=== PATIENT | male | born 1970 | race Caucasian/White ===

== ENCOUNTER 2019-10-24 16:55 | Emergency (ER) | payer BC, OTHER ==
--- NOTE | 2019-10-24 18:35 | ER ---
Nurse's Notes [facility] Name: Joaquin Tuttle Age: 49 yrs Sex: Male : 1970 Arrival Date: 10/24/2019 Time: 16:58 Bed 20 Private MD: Diagnosis: Cellulitis of right lower limb Presentation: 10/23 17:33 Chief complaint: Patient states: right heel pain that began Friday, denies known aa5 injury. Coronavirus screen: Proceed with normal triage. Patient denies a cough. Patient denies shortness of breath or difficulty breathing. Patient denies measured and/or subjective temperature greater than 100.4F prior to today's visit. Patient denies travel on a cruise ship or to a country the [facility] currently lists as an affected area. Patient denies contact with known and/or suspected case of COVID-19. Ebola Screen: Patient negative for fever greater than or equal to 101.5 degrees Fahrenheit, and additional compatible Ebola Virus Disease symptoms. Initial Sepsis Screen: Does the patient meet any 2 criteria? No. Patient's initial sepsis screen is negative. Does the patient have a suspected source of infection? No. Patient's initial sepsis screen is negative. Risk Assessment: Do you want to hurt yourself or someone else? Patient reports no desire to harm self or others. Onset of symptoms was October 2019. 17:33 Method Of Arrival: Ambulatory aa5 17:33 Acuity: TAYLOR 4 aa5 Historical: - Allergies: 17:37 No Known Allergies; aa5 - Home Meds: 17:37 Metformin Oral [Active]; aa5 - PMHx: 17:37 Diabetes - NIDDM; aa5 - PSHx: 17:37 herniated disc sx; Rhinoplasty; L knee; aa5 - Immunization history:: Adult Immunizations unknown. - Social history:: Smoking status: Patient denies any tobacco usage or history of. Screenin:40 Abuse screen: Denies threats or abuse. Nutritional screening: No deficits noted. aa5 Tuberculosis screening: No symptoms or risk factors identified. Fall Risk None identified. Assessment: 17:40 General: Appears comfortable, Behavior is calm, cooperative. Pain: Complains of pain in aa5 right Achilles Pain does not radiate. Pain currently is 2 out of 10 on a pain scale. Quality of pain is described as sharp, Aggravated by increased activity, weight bearing. Neuro: Level of Consciousness is awake, alert, obeys commands, Oriented to person, place, time, situation. Cardiovascular: Heart tones S1 S2 present Rhythm is regular. Respiratory: Airway is patent Respiratory effort is even, unlabored, Respiratory pattern is regular, symmetrical. GI: No signs and/or symptoms were reported involving the gastrointestinal system. : No signs and/or symptoms were reported regarding the genitourinary system. EENT: No signs and/or symptoms were reported regarding the EENT system. Derm: Skin is pink, warm \T\ dry. Musculoskeletal: Range of motion: limited in right ankle. Vital Signs: 17:33 BP 160 / 95; Pulse 73; Resp 18 S; Temp 98.6(TE); Pulse Ox 96% on R/A; Weight 136.08 kg aa5 (R); Height 5 ft. 7 in. (170.18 cm) (R); Pain 2/10; 18:58 BP 148 / 88; Pulse 70; Resp 14; Temp 98.4(O); Pulse Ox 96% on R/A; Pain 0/10; ls4 17:33 Body Mass Index 46.99 (136.08 kg, 170.18 cm) aa5 ED Course: 16:58 Patient arrived in ED. ag5 17:24 [facility] Bor[facility]C [facility]. kb 17:24 Carlos Alberto Pena MD is Attending Physician. kb 17:33 Arm band placed on. aa5 17:33 Patient has correct armband on for positive identification. aa5 17:36 Triage completed. aa5 17:37 Shelby Cruz, RN is Primary Nurse. aa5 18:36 US Extremity Venous Unilateral Ltd In Process Unspecified. EDMS 18:36 Ultrasound completed. Patient tolerated well. Notified ED Physician mary. sg3 Administered Medications: 18:49 Drug: Clindamycin 300 mg Route: PO; ls4 18:59 Follow up: Response: No adverse reaction; Marked relief of symptoms ls4 Outcome: 18:35 Discharge ordered by . kb 18:59 Patient left the ED. ls4 Signatures: Dispatcher [employer] EDDC Mary Borrero FNP-C FNP-Shelby Bonner, RN RN aa5 Katherine Crawford sg3 Moraima Rodriguez RN RN ls4 Jarad Shook ag5
--- NOTE | 2019-10-24 18:35 | EDPHYS ---
Physician Documentation [facility] Name: Joaquin Tuttle Age: 49 yrs Sex: Male : 1970 Arrival Date: 10/24/2019 Time: 16:58 Bed 20 Private MD: ED Physician Carlos Alberto Pena HPI: 10/23 18:33 This 49 yrs old Male presents to ER via Ambulatory with complaints of Foot kb Pain. 18:33 The patient has not experienced similar symptoms in the past. The patient has not kb recently seen a physician. 18:33 the patient presents with a swollen area of the right Achilles. Description: kb erythematous, swollen, warm. Onset: The symptoms/episode began/occurred 3 day(s) ago. Possible cause(s): unknown. Associated signs and symptoms: Pertinent positives: erythema, swelling, Pertinent negatives: discharge, drainage, foreign body sensation, fever, headache, nausea, shortness of breath, vomiting. Modifying factors: the symptoms are alleviated by nothing, the symptoms are aggravated by flexing and extending foot. Severity of symptoms: At their worst the symptoms were moderate, in the emergency department the symptoms are unchanged. Pt states he developed pain and swelling to achilles area on Friday. Denies injury or trauma. States it doesn't feel like a musculoskeletal problem. Historical: - Allergies: 17:37 No Known Allergies; aa5 - Home Meds: 17:37 Metformin Oral [Active]; aa5 - PMHx: 17:37 Diabetes - NIDDM; aa5 - PSHx: 17:37 herniated disc sx; Rhinoplasty; L knee; aa5 - Immunization history:: Adult Immunizations unknown. - Social history:: Smoking status: Patient denies any tobacco usage or history of. ROS: 18:32 Constitutional: Negative for fever, chills, and weight loss, Cardiovascular: Negative kb for chest pain, palpitations, and edema, Respiratory: Negative for shortness of breath, cough, wheezing, and pleuritic chest pain, Abdomen/GI: Negative for abdominal pain, nausea, vomiting, diarrhea, and constipation, Back: Negative for injury and pain, Neuro: Negative for headache, weakness, numbness, tingling, and seizure. 18:32 MS/extremity: Positive for erythema, pain, swelling, of the right Achilles. Exam: 18:32 Constitutional: This is a well developed, well nourished patient who is awake, alert, kb and in no acute distress. Head/Face: Normocephalic, atraumatic. Chest/axilla: Normal chest wall appearance and motion. Nontender with no deformity. No lesions are appreciated. Cardiovascular: Regular rate and rhythm with a normal S1 and S2. No gallops, murmurs, or rubs. Normal PMI, no JVD. No pulse deficits. Respiratory: Lungs have equal breath sounds bilaterally, clear to auscultation and percussion. No rales, rhonchi or wheezes noted. No increased work of breathing, no retractions or nasal flaring. Abdomen/GI: Soft, non-tender, with normal bowel sounds. No distension or tympany. No guarding or rebound. No evidence of tenderness throughout. MS/ Extremity: Pulses equal, no cyanosis. Neurovascular intact. Full, normal range of motion. Neuro: Awake and alert, GCS 15, oriented to person, place, time, and situation. Cranial nerves II-XII grossly intact. Motor strength 5/5 in all extremities. Sensory grossly intact. Cerebellar exam normal. Normal gait. 18:32 Skin: cellulitis, that is mild, on the right Achilles. Vital Signs: 17:33 BP 160 / 95; Pulse 73; Resp 18 S; Temp 98.6(TE); Pulse Ox 96% on R/A; Weight 136.08 kg aa5 (R); Height 5 ft. 7 in. (170.18 cm) (R); Pain 2/10; 18:58 BP 148 / 88; Pulse 70; Resp 14; Temp 98.4(O); Pulse Ox 96% on R/A; Pain 0/10; ls4 17:33 Body Mass Index 46.99 (136.08 kg, 170.18 cm) aa5 MDM: 17:37 Patient medically screened. kb 18:22 Data reviewed: vital signs, nurses notes. Data interpreted: Pulse oximetry: on room air kb is 96 %. Interpretation: normal. 18:32 Counseling: I had a detailed discussion with the patient and/or guardian regarding: the kb historical points, exam findings, and any diagnostic results supporting the discharge/admit diagnosis, radiology results, the need for outpatient follow up, a family practitioner, to return to the emergency department if symptoms worsen or persist or if there are any questions or concerns that arise at home. 10/23 17:42 Order name: US Extremity Venous Unilateral Ltd; Complete Time: 18:52 kb Administered Medications: 18:49 Drug: Clindamycin 300 mg Route: PO; ls4 18:59 Follow up: Response: No adverse reaction; Marked relief of symptoms ls4 Disposition: 19:01 Co-signature as Attending Physician, Carlos Alberto Pena MD. rn Disposition: 10/24/19 18:35 Discharged to Home. Impression: Cellulitis of right lower limb. - Condition is Stable. - Discharge Instructions: Cellulitis, Adult, [id number]. - Prescriptions for Clindamycin HCl 300 mg Oral Capsule - take 1 capsule by ORAL route every 6 hours for 7 days; 28 capsule. - Medication Reconciliation Form, Thank You Letter, Antibiotic Education, Prescription Opioid Use form. - Follow up: Emergency Department; When: As needed; Reason: Worsening of condition. Follow up: Private Physician; When: 2 - 3 days; Reason: Recheck today's complaints, Continuance of care, Re-evaluation by your physician. Signatures: Dispatcher [employer] [facility] Mary Borrero, GEOSPATIAL ANALYST-C GEOSPATIAL ANALYST-Ckb Carlos Alberto Pena MD MD rn Calderon, Audri, RN RN aa5 Moraima Rodriguez RN RN ls4 Corrections: (The following items were deleted from the chart) 17:59 17:38 Foot Right 3 View+RAD.[email or web address] ordered. [facility] 18:59 18:35 10/24/2019 18:35 Discharged to Home. Impression: Cellulitis of right lower limb. ls4 Condition is Stable. Forms are Medication Reconciliation Form, Thank You Letter, Antibiotic Education, Prescription Opioid Use. Follow up: Emergency Department; When: As needed; Reason: Worsening of condition. Follow up: Private Physician; When: 2 - 3 days; Reason: Recheck today's complaints, Continuance of care, Re-evaluation by your physician. kb
--- NOTE | 2019-10-24 18:45 | RAD REPORT ---
[facility] 6:37 pm CLINICAL HISTORY: Right leg pain COMPARISON: None. FINDINGS: Right common femoral, superficial femoral, popliteal and right posterior tibial veins are compressible and demonstrate augmentation. Doppler demonstrates good flow. IMPRESSION: No evidence of deep venous thrombosis involving the right lower extremity.
[2019-10-24 19:05] VITALS: O2SAT 96
[2019-10-24 19:06] VITALS: BP 148/88; TEMP 98.4
== END 2019-10-24 18:59 | disposition home or self-care (01) ==
LOC: ER 16:55
DX: L03.115 Cellulitis of right lower limb (principal); E11.9 Type 2 diabetes mellitus without complications
CPT/HCPCS: 93971; 99283